=== PATIENT | female | born 2000 | race Caucasian/White ===

== ENCOUNTER 2022-05-19 17:41 | Emergency (ER) | payer OTHER, SELFPAY ==
--- NOTE | ~2022-05-19 | XR_ITS ---
EXAMINATION: XR chest 2V Exam Date/Time: 05/19/2022 18:26 MANIPULATIVE THERAPY SPECIALIST HISTORY: cough, tachycardia, chest discomfort Comparison: None available. RESULT: Lines, tubes, and devices: None. Lungs and pleura: Clear. Cardiomediastinal silhouette: Normal. Other: No acute osseous or upper abdominal finding. IMPRESSION: No acute cardiopulmonary process. Reviewed, dictated and finalized at location K. PULATIVE THERAPY SPECIALIST
--- NOTE | 2022-05-19 17:43 | ED.URI ---
HPI - URI/Sore Throat General Chief Complaint: Upper Respiratory Infection Stated Complaint: sore throat, fever, chest pain Time Seen by Provider: 05/19/22 17:43 Source: patient Mode of arrival: ambulatory Limitations: no limitations History of Present Illness HPI Narrative: Lorna is a 21-year-old female patient presenting to the clinic today with complaints of sore throat, fever, chest pain since yesterday. She reports she is also having a slight dry at times productive cough. Feels as though her lungs are heavy. States that she is having sharp chest discomfort with deep respirations. She is a current smoker. MD elicited complaint: fever, cough and other (Chest pain with inspiration) Related Data Home Medications Medication Instructions Recorded Confirmed drospirenone 3 mg-ethinyl 1 tablet PO DAILY 08/20/21 05/19/22 estradiol 0.02 mg tablet (TALI (28)) amitriptyline 10 mg tablet 20 mg PO DAILY 01/28/22 05/19/22 Allergies Allergy/AdvReac Type Severity Reaction Status Date / Time No Known Allergies Allergy Verified 05/19/22 17:52 Review of Systems Review of Systems: Pertinent positives per HPI. Patient denies any rash, headache, visual changes, dizziness, cough, shortness of breath, palpitations, nausea, vomiting, diarrhea, constipation, abdominal pain, or any urinary issues. PMFSH Past Medical History Medical History Attention Deficit Hyperactivity Disorder (ADHD) IBS (irritable bowel syndrome) Family History Family History Other Diabetes mellitus Family history of kidney disease Family history of malignant neoplasm Social History Social History Smoking status: Current every day smoker Tobacco type: e-cigarettes/vaping Alcohol intake: current Alcohol use details: socially; seldom Substance use: former Substance use type: does not use and marijuana Comments At the time of my signature, I reviewed and agree with the nursing past medical, surgical, social, and family history. There is no relevant family history pertinent to the patient complaint. Exam Narrative: General: Well-developed, well nourished, in no apparent distress Head: Normocephalic, atraumatic Eyes: Pupils equally round and reactive to light bilaterally, EOM intact, sclera and conjunctive clear, no discharge, lids normal Ears: TMs intact and clear, ear canals clear, no drainage, grossly hearing normal. Nose: Nares patent, clear nasal discharge, no inflammation, no sinus tenderness. Mouth: Oral pharynx without lesions or masses, good dentition, MMM. Oropharynx red Neck: Supple, trachea midline, mild enlargement of anterior cervical nodes, no thyroid masses or goiter palpable. Cardio:Tachycardic, regular rate and rhythm, s1 and s2 normal, no murmur appreciated. Resp: Clear to auscultation bilaterally, no rhonchi, rales, wheezing or rubs Course Course Emergency Course: Portions of this record may have been created with voice recognition software. Level of Care: Express Care Visit Vital Signs Vital signs: Vital signs reviewed MDM - URI/Sore Throat MDM Narrative Medical decision making narrative: At the time of the patient is resting comfortably on the exam table. COVID and influenza testing were negative in the clinic today. Strep culture was obtained and sent to the lab. I suspect patient has URI/pharyngitis/viral syndrome. Will send in albuterol inhaler as she is complaining of cough and having her lungs feel heavy. EKG was performed in the clinic because her heart rate was in the 130s and it was sinus tachycardia with 129 beats per minute with T-wave abnormality otherwise normal. She is a current smoker and she is on control. Discussed the risk of PE with her symptoms and expressed if symptoms worsen to go the emergenc
[2022-05-19 17:46] VITALS: BP 122/77; PULSE 133; RESP 18; TEMP 37.8; O2SAT 100
--- NOTE | 2022-05-19 18:44 | ECG_ITS ---
Measurements Intervals [place] Rate: 129 P: 48 ND: 120 QRS: 71 QRSD: 89 T: -14 QT: 334 QTc: 490 Interpretive Statements SINUS TACHYCARDIA NONSPECIFIC T-WAVE ABNORMALITY NO PREVIOUS ECG AVAILABLE FOR COMPARISON Electronically Signed On 05-20-2022 11:39:34 [employer] by Echo Charles M.D.
== END 2022-05-19 19:03 | disposition home or self-care (01) ==
PROVIDERS: Emergency Provider Nurse Practitioner Family; PCP Family Medicine
DX: B34.9 Viral infection, unspecified (principal); J06.9 Acute upper respiratory infection, unspecified; J02.9 Acute pharyngitis, unspecified; Z20.822 Contact with and (suspected) exposure to COVID-19; F17.290 Nicotine dependence, other tobacco product, uncomplicated; F90.9 Attention-deficit hyperactivity disorder, unspecified type
CPT/HCPCS: 71046; 87081; 87426; 87804; 93005; 99213; C9803; G0463

== ENCOUNTER 2022-06-07 12:12 | Emergency (ER) | payer OTHER, SELFPAY ==
[2022-06-07 13:17] VITALS: BP 137/83; PULSE 107; RESP 16; TEMP 37.4; O2SAT 100
--- NOTE | 2022-06-07 14:00 | ED.URI ---
HPI - URI/Sore Throat General Chief Complaint: Upper Respiratory Infection Stated Complaint: sore throat, swollen tonsils Time Seen by Provider: 06/07/22 14:00 History of Present Illness HPI Narrative: 21-year-old female presented for complaint of sore throat fever for 2 days. She endorses temperature up to 104 last night. Also endorses lymph node swelling. She states she had similar symptoms a few days before [place], for which she took amoxicillin. She states this was not prescribed for this infection, and she had 17 tablets to take. She states she felt better for about 1 week until symptoms developed 2 days ago. She currently denies shortness of breath, wheezing, nausea, vomiting, diarrhea. She denies known sick contacts. Related Data Home Medications Medication Instructions Recorded Confirmed drospirenone 3 mg-ethinyl 1 tablet PO DAILY 08/20/21 06/07/22 estradiol 0.02 mg tablet (TALI (28)) amitriptyline 10 mg tablet 20 mg PO DAILY 01/28/22 06/07/22 Allergies Allergy/AdvReac Type Severity Reaction Status Date / Time No Known Allergies Allergy Verified 06/07/22 13:34 Review of Systems Review of Systems: CONSTITUTIONAL: Denies body aches, fever, chills, or sweats. EYES: Denies visual changes, redness, or discharge. ENT: Denies rhinorrhea, congestion, or otalgia. CARDIOVASCULAR: Denies chest pain, palpitations, or edema. RESPIRATORY: Denies dyspnea. GASTROINTESTINAL: Denies abdominal pain, nausea, vomiting, or diarrhea. SKIN: Denies rash, itching, or wounds. MUSCULOSKELETAL: Denies back pain, joint pain, or myalgia. NEUROLOGIC: Denies headache PMFSH Past Medical History Medical History Attention Deficit Hyperactivity Disorder (ADHD) IBS (irritable bowel syndrome) Family History Family History Other Diabetes mellitus Family history of kidney disease Family history of malignant neoplasm Social History Social History Smoking status: Current every day smoker Tobacco type: e-cigarettes/vaping Alcohol intake: current Alcohol use details: socially; seldom Substance use: former Substance use type: does not use and marijuana Exam Narrative: GENERAL: Ill-appearing, no acute distress. EYES: conjunctivae clear ENT: Mucous membranes moist. TMs pearly ac with normal light reflex bilaterally; no tragal tenderness. Oropharynx erythematous. Tonsils enlarged 2+ with exudate. No drooling, no hoarseness, no trismus, uvula midline. No tripod positioning, hot potato voice, or soft palate swelling. NECK: Supple. bilateral anterior cervical lymphadenopathy CHEST: Clear to auscultation, breath sounds equal. No respiratory distress, speaks in full sentences. HEART: Regular rate and rhythm. No murmur heard. SKIN: Warm, dry, no rash. NEURO: Alert and oriented x3. Course Course Emergency Course: Patient is aware of diagnosis, understands and agrees to treatment plan. Anticipatory guidance given. Patient agrees to follow-up as directed and is aware of reasons to seek care at the emergency department. Portions of this record may have been created with voice recognition software Level of Care: Express Care Visit Vital Signs Vital signs: Vital Signs Temperature 99.3 F 06/07/22 13:17 Pulse Rate 107 H 06/07/22 13:17 Respiratory Rate 16 06/07/22 13:17 Blood Pressure 137/83 06/07/22 13:17 Pulse Oximetry 100 06/07/22 13:17 Oxygen Delivery Room Air 06/07/22 13:17 Temperature 99.3 F 06/07/22 13:17 Pulse Rate 107 H 06/07/22 13:17 Respiratory Rate 16 06/07/22 13:17 Blood Pressure 137/83 06/07/22 13:17 Pulse Oximetry 100 06/07/22 13:17 Oxygen Delivery Room Air 06/07/22 13:17 MDM - URI/Sore Throat MDM Narrative Medical decision making narrative: Due to lack of resources, unable t
== END 2022-06-07 14:13 | disposition home or self-care (01) ==
PROVIDERS: Emergency Provider Nurse Practitioner Family; PCP Family Medicine
DX: J02.9 Acute pharyngitis, unspecified (principal); F17.290 Nicotine dependence, other tobacco product, uncomplicated
CPT/HCPCS: 99213; G0463

== ENCOUNTER 2024-02-16 19:28 | Emergency (ER) | payer OTHER, SELFPAY ==
[2024-02-16 19:50] VITALS: BP 147/95; PULSE 103; RESP 16; TEMP 36.8; O2SAT 100
--- NOTE | 2024-02-16 20:21 | ED.FEMALEGU ---
HPI - Female Genitourinary General Chief complaint: Urogenital-Female Stated complaint: UTI SYMPTOMS Time Seen by Provider: 02/16/24 20:15 Source: patient, RN notes reviewed and old records reviewed Mode of arrival: ambulatory Limitations: no limitations History of Present Illness HPI Narrative: 23 year old female who presents to [facility] care with complaints of 2 days of FOUL SMELLY URINE AND TODAY NOTED BURNING URGENCY AND FREQUENCY. Patient reports that she does have some lower back pain,denies any CVA tenderness any suprapubic pressure. Patient states no concern fo STD exposure or any vaginal drainage or itching. Patient reports that she has had UTI's previously but not for past year. MD elicited complaint: UTI Pertinent past history: other (IBS, previous UTI) Onset (ago): day(s) (2) Severity: moderate Vaginal discharge: none Treatment prior to arrival: none Related Data Home Medications Medication Instructions Recorded Confirmed drospirenone 3 mg-ethinyl 1 tablet PO DAILY 08/20/21 02/16/24 estradiol 0.02 mg tablet (TALI (28)) Allergies Allergy/AdvReac Type Severity Reaction Status Date / Time No Known Allergies Allergy Verified 02/16/24 19:40 Review of Systems Review of Systems: CONSTITUTIONAL: Denies fever, chills, or sweats. CARDIOVASCULAR: Denies chest pain, palpitations, or edema. RESPIRATORY: Denies cough or dyspnea. GASTROINTESTINAL: Denies abdominal pain, nausea, vomiting, or diarrhea. GENITOURINARY: Reports dysuria, frequency, urgency. Denies flank pain or hematuria. SKIN: Denies rash or itching. MUSCULOSKELETAL: positive for some pain in lower back or myalgia. Denies CVA tenderness NEUROLOGIC: Denies headache All systems reviewed & are unremarkable except as noted in HPI and below [facility] Past Medical History Medical History Attention Deficit Hyperactivity Disorder (ADHD) IBS (irritable bowel syndrome) Family History Family History Other Diabetes mellitus Family history of kidney disease Family history of malignant neoplasm Social History Social History Smoking status: Current every day smoker Tobacco type: e-cigarettes/vaping Alcohol intake: current Alcohol use details: socially; seldom Substance use: former Substance use type: does not use and marijuana Last use: 2021 Lack of Transportation: No Lack of Food: Never True Current Housing: I Have Housing Concerned About Future Housing: No Difficulty Paying Gas/Electric Bills: No Difficulty Paying for Meds: No Currently Unemployed: No Education: Associate Degree Difficulty w/ Childcare or Family Care: No Comments At time of signature, agree with nursing past medical, surgical, social and family history. There is no relevant family history pertinent to the presenting complaint Exam Narrative: GENERAL: Well-appearing, well-nourished, and in no acute distress. HEAD: Normocephalic, atraumatic. NECK: Supple. no lymphadenopathy CHEST: Clear to auscultation. No respiratory distress.SAO2 100% on room air HEART: Regular rate and rhythm. No murmur heard. Normal peripheral pulses. ABDOMEN: Soft, nontender, nondistended, normal active bowel sounds. No CVA tenderness, dysuria, frequency and urgency with low back discomfort EXTREMITIES: Normal range of motion. No edema. SKIN: Warm, dry, no rash. NEURO: No focal deficits. Alert and oriented x3. Course Course Emergency Course: Patient is aware of diagnosis, understands and agrees to treatment plan.? Anticipatory guidance given.? Patient agrees to follow-up as directed and is aware of reasons to seek care at the emergency department. Portions of this record may have been created with voice recognition software Level of Care: Express Care Visit Vital Signs Vital signs: Vital Signs T
[2024-02-16 20:34] LABS: EDUAAPPEAR Cloudy; EDUABILI Negative (Negative); EDUABLOOD Trace (Negative); EDUACOLOR1 Light/Pale; EDUAGLUCOSE Negative (Negative); EDUAKETONE Negative (Negative); EDUALEUKO Negative (Negative); EDUANITRATE Negative (Negative); EDUAPH 6.5; EDUAPROTEIN Negative (Negative); EDUASPGRAVITY 1.025; EDUAUROBILI 0.2
== END 2024-02-16 20:36 | disposition home or self-care (01) ==
PROVIDERS: Emergency Provider Registered Nurse; PCP Family Medicine
DX: N39.0 Urinary tract infection, site not specified (principal); B96.20 Unspecified Escherichia coli [E. coli] as the cause of diseases classified elsewhere; F17.290 Nicotine dependence, other tobacco product, uncomplicated
CPT/HCPCS: 81003; 87077; 87086; 87088; 87186; 99213; G0463

== ENCOUNTER 2024-11-20 19:04 | Emergency (ER) | payer OTHER, SELFPAY ==
--- NOTE | ~2024-11-20 | XR_ITS ---
HISTORY: LT wrist pain no injury 2 weeks COMPARISON: None TECHNIQUE: 3 views of the left wrist were performed. FINDINGS: No acute fracture is identified. The carpal arcs are intact. Mild radiocarpal joint space narrowing with sclerosis of the distal radius is present. The remaining visualized joint spaces are otherwise preserved. Trace negative ulnar variance is detected. Bone mineralization is unremarkable. No significant soft tissue swelling is noted. No radiopaque foreign body is identified. IMPRESSION: Trace degenerative disease, without acute fracture or dislocation Reviewed, dictated and finalized at location A.
--- NOTE | 2024-11-20 19:12 | ED.LOWEXIN ---
HPI - Extremity Injury (Lower) General Chief Complaint: Extremity Injury, Lower Stated Complaint: Left Wrist Pain Source: patient and RN notes reviewed Mode of arrival: ambulatory Limitations: no limitations History of Present Illness HPI Narrative: Patient is a 24-year-old female who presents to the [facility] with complaints of left wrist pain. Patient states that she has had left wrist pain for the past couple weeks. However, the pain has worsened in severity over the last couple days. She states that she has an exacerbation of the pain when she applies pressure to the left hand. She has full range of motion of her left hand and wrist. She is neurovascularly intact. There is no obvious swelling or deformity. Sensation is intact. Patient states that she notices the pain when she has to type for her job. She states that she frequently does type and repeat motions at work. Patient states that she noticed a divot at the base of her wrist, so she was concerned for dislocation. Related Data Home Medications ?Medication ?Instructions ?Recorded ?Confirmed ?Last Taken ?Type drospirenone 3 mg-ethinyl 1 tablet PO DAILY 08/20/21 11/20/24 Unknown History estradiol 0.02 mg tablet (TALI (28)) Allergies Allergy/AdvReac Type Severity Reaction Status Date / Time No Known Allergies Allergy Verified 11/20/24 19:25 Review of Systems Review of Systems: CONSTITUTIONAL: Denies fever, chills, or sweats. EYES: Denies visual changes, redness, or discharge. ENT: Denies otalgia and sore throat CARDIOVASCULAR: Denies chest pain, palpitations, or edema. RESPIRATORY: Denies cough or dyspnea. GASTROINTESTINAL: Denies abdominal pain, nausea, vomiting, or diarrhea. GENITOURINARY: Denies dysuria or hematuria. SKIN: Denies rash or itching. MUSCULOSKELETAL: Reports left wrist pain. NEUROLOGIC: Denies headache, numbness, or weakness. Pertinent positives per HPI. [facility] Past Medical History Medical History IBS (irritable bowel syndrome) Attention Deficit Hyperactivity Disorder (ADHD) Family History Family History Other Diabetes mellitus Family history of kidney disease Family history of malignant neoplasm Social History Social History Smoking status: Current every day smoker Tobacco type: e-cigarettes/vaping Alcohol intake: current Alcohol use details: socially; seldom Substance use: former Substance use type: does not use and marijuana Last use: 2021 Lack of Transportation: No Lack of Food: Never True Current Housing: I Have Housing Concerned About Future Housing: No Difficulty Paying Gas/Electric Bills: No Difficulty Paying for Meds: No Currently Unemployed: No Education: Associate Degree Difficulty w/ Childcare or Family Care: No Comments At the time of my signature, I reviewed and agree with the nursing past medical, surgical, social, and family history. There is no relevant family history pertinent to the patient complaint. Exam Narrative: GENERAL: This is a well-nourished, well-developed patient, in no apparent distress. HEAD: normocephalic, atraumatic. EYES: Sclera clear/white. Vision is grossly intact. EARS: External ears normal. Hearing grossly intact. NOSE: External nose normal with no obvious nasal discharge, nares without redness, no rhinorrhea. THROAT: Mucous membranes moist, posterior pharynx clear. NECK: Neck supple, non-tender without lymphadenopathy, masses or thyromegaly. CARDIOVASCULAR: Regular rate and rhythm without murmurs, gallops, or rubs. RESPIRATORY: Clear to auscultation. Breath sounds equal bilaterally. No wheezes, rales, or rhonchi. GASTROINTESTINAL: Abdomen soft, non-tender, nondistended. Bowel sounds are active. No hepato-splenomegaly, or palpable masses. No guarding. SKIN: warm, intact with no suspicious lesions or rash, good texture and turgor. NEURO: awake, alert, and oriented to person, place and time. There were no obvious focal neurologic abnormalities. EXTREMITIES: The L wrist is with obvious asymmetry or deformity when compared to the R wrist. NO surface trauma, open wounds, swelling or obvious deformity. No overlying erythema or warmth. No bony crepitus or focal area of tender to palpate.Normal flexion/extension, ulnar/radial deviation. Motor/sensory function of ulnar, radial, median nerves intact. Ulnar and radial pulses intact Course Course Level of Care: Express Care Visit Vital Signs Vital signs: Vital Signs Temperature 99.2 F 11/20/24 19:13 Pulse Rate 91 11/20/24 19:13 Respiratory Rate 16 11/20/24 19:13 Blood Pressure 130/91 H 11/20/24 19:13 Pulse Oximetry 99 11/20/24 19:13 Oxygen Delivery Room Air 11/20/24 19:13 Temperature 99.2 F 11/20/24 19:13 Pulse Rate 91 11/20/24 19:13 Respiratory Rate 16 11/20/24 19:13 Blood Pressure 130/91 H 11/20/24 19:13 Pulse Oximetry 99 11/20/24 19:13 Oxygen Delivery Room Air 11/20/24 19:13 Reviewed MDM - Extremity Injury (Lower) MDM Narrative Medical decision making narrative: Use the RICE method at home. May take ibuprofen and/or Tylenol if needed. If symptoms persist in 1 week after conservative treatment, follow-up with specialist. Differential Diagnosis Differential diagnosis: Likely other (wrist fracture, hand fracture, radial fracture, ulnar fracture, wrist sprain) Imaging Data Attestation: I personally reviewed and interpreted this imaging study as follows: Radiologist's impression: X-ray interpreted by me. No acute osseous abnormality. Critical Care Time Critical Care Time Critical Care Time: No Discharge Plan Discharge Clinical Impression: Left wrist sprain Qualifiers: Encounter type: initial encounter Wrist sprain location: unspecified location Qualified Code(s): S63.502A - Unspecified sprain of left wrist, initial encounter Patient Disposition: Home Condition: Stable Instructions: Wrist Sprain (ED), P.R.I.C.E. Treatment (ED) Additional Instructions: Use the RICE method at home. If symptoms persist in 1 week after conservative treatment, follow-up with specialist. Patient Language: Upper Sorbian Prescriptions: New naproxen 500 mg tablet 500 mg PO BID PRN (Reason: pain) Qty: 20 0RF No Action drospirenone-ethinyl estradiol [TALI (28)] 3-0.02 mg tablet 1 tablet PO DAILY Follow-up/Referrals: PHYSICIAN,SOCIAL WORK ASSOCIATE [Primary Care Provider] - Stand Alone Forms: Work/School Release IP Time of Disposition: 20:03
[2024-11-20 19:13] VITALS: BP 130/91; PULSE 91; RESP 16; TEMP 37.3; O2SAT 99
== END 2024-11-20 20:10 | disposition home or self-care (01) ==
PROVIDERS: Emergency Provider Nurse Practitioner
DX: S63.502A Unspecified sprain of left wrist, initial encounter (principal); X58.XXXA Exposure to other specified factors, initial encounter
CPT/HCPCS: 73110; 99213; G0463

== ENCOUNTER 2025-01-29 18:36 | Emergency (ER) | payer OTHER, SELFPAY ==
--- NOTE | 2025-01-29 18:38 | ED.FEMALEGU ---
HPI - Female Genitourinary General Chief complaint: Urogenital-Female Stated complaint: Uti Symptoms Time Seen by Provider: 01/29/25 18:50 Source: patient Mode of arrival: ambulatory Limitations: no limitations History of Present Illness HPI Narrative: Lorna is a 24-year-old female patient presenting to the clinic today with complaints of burning, frequency, and urgency with urination as well as some lower back pain times 2-3 days. Took some azo last night for her symptoms. She denies any nausea vomiting flank pain or abdominal pain. No fevers, chills, body aches. Related Data Home Medications ?Medication ?Instructions ?Recorded ?Confirmed ?Last Taken ?Type drospirenone 3 mg-ethinyl 1 tablet PO DAILY 08/20/21 11/20/24 Unknown History estradiol 0.02 mg tablet (TALI (28)) Allergies Allergy/AdvReac Type Severity Reaction Status Date / Time No Known Allergies Allergy Verified 01/29/25 18:42 Review of Systems Review of Systems: Pertinent positives per HPI. Patient denies any fever, chills, rash, headache, visual changes, dizziness, cough, runny nose, sore throat, shortness of breath, chest pain, palpitations, nausea, vomiting, diarrhea, constipation, abdominal pain PMFSH Past Medical History Medical History IBS (irritable bowel syndrome) Attention Deficit Hyperactivity Disorder (ADHD) Family History Family History Other Diabetes mellitus Family history of kidney disease Family history of malignant neoplasm Social History Social History Smoking status: Current every day smoker Tobacco type: e-cigarettes/vaping Alcohol intake: current Alcohol use details: socially; seldom Substance use: former Substance use type: does not use and marijuana Last use: 2021 Lack of Transportation: No Lack of Food: Never True Current Housing: I Have Housing Concerned About Future Housing: No Difficulty Paying Gas/Electric Bills: No Difficulty Paying for Meds: No Currently Unemployed: No Education: Associate Degree Difficulty w/ Childcare or Family Care: No Comments At the time of my signature, I reviewed and agree with the nursing past medical, surgical, social, and family history. There is no relevant family history pertinent to the patient complaint. Exam Narrative: General: Well-developed, well nourished, in no apparent distress. Head: Normocephalic, atraumatic. Cardio: Regular rate and rhythm, s1 and s2 normal, no murmur appreciated. Resp: Clear to auscultation bilaterally, no rhonchi, rales, wheezing or rubs. Abdomen: Soft, pliable, bowel sounds present in all quadrants, non-tender to palpation, no organomegly, no CVAT tenderness. Course Course Emergency Course: Portions of this record may have been created with voice recognition software. Level of Care: Express Care Visit Vital Signs Vital signs: Vital Signs Temperature 36.7 C 01/29/25 18:42 Pulse Rate 102 H 01/29/25 18:42 Respiratory Rate 16 01/29/25 18:42 Blood Pressure 124/78 01/29/25 18:42 Pulse Oximetry 100 01/29/25 18:42 Temperature 36.7 C 01/29/25 18:42 Pulse Rate 102 H 01/29/25 18:42 Respiratory Rate 16 01/29/25 18:42 Blood Pressure 124/78 01/29/25 18:42 Pulse Oximetry 100 01/29/25 18:42 Vital signs reviewed MDM - Female Genitourinary MDM Narrative Medical decision making narrative: At the time of visit patient is resting comfortably on the exam table. Patient appears to be nontoxic. Complaints of burning, frequency, and urgency with urination as well as some lower back pain times 2-3 days. Took some azo last night for her symptoms. She denies any nausea vomiting flank pain or abdominal pain. No fevers, chills, body aches. UA dip ordered. Labs: Urine dip positive for nitrates. Plan: Patient is having UTI symptoms-urinalysis shows positive nitrate. Will place on Macrobid. Supportive measures were discussed with the patient and they voiced understanding discharge instructions and agrees to treatment plan. Return precautions reviewed Lab Data Labs: Lab Results 01/29/25 Range/Units 18:48 POC Urine Color Yellow POC Urine Clarity Clear POC Urine pH 5.5 POC Ur Specif [place] 1.025 POC Urine Protein Negative (Negative) POC Ur Glucose (UA) Negative (Negative) POC Urine Ketones Negative (Negative) POC Urine Blood Negative (Negative) POC Urine Nitrite Positive (Negative) POC Urine Bilirubin Negative (Negative) POC Urine Urobilinogen 1.0 POC U Leukocyte Esteras Negative (Negative) Discharge Plan Discharge Clinical Impression: Symptoms of urinary tract infection Patient Disposition: Home Condition: Stable Instructions: Antibiotic Form, Urinary Tract Infection in Women (ED) Additional Instructions: Urine positive for nitrates. We will send urine for culture Take Macrobid as prescribed Increase fluids and stay well hydrated Wipe front to back. May use wet wipes. Avoid tub baths If sexually active- pee before and after intercourse. Wear cotton panties Avoid tight clothing up against the genitals Follow up with your PCP in 1 week if symptoms persist. Patient Language: Hungarian Prescriptions: New nitrofurantoin monohyd/m-cryst [Macrobid] 100 mg capsule 100 mg PO Q12H 5 Days Qty: 10 0RF Rx Instructions: must administer with a meal/food No Action drospirenone-ethinyl estradiol [TALI (28)] 3-0.02 mg tablet 1 tablet PO DAILY Follow-up/Referrals: PHYSICIAN,COMMUNITY RESOURCE OFFICER [Primary Care Provider, Internal Medicine] Time of Disposition: 18:54 Quality NIHSS Nursing Documentation ED NIHSS nursing documentation: reviewed/agree
[2025-01-29 18:42] VITALS: BP 124/78; PULSE 102; RESP 16; TEMP 36.7; O2SAT 100
[2025-01-29 18:50] LABS: EDUAAPPEAR Clear; EDUABILI Negative (Negative); EDUABLOOD Negative (Negative); EDUACOLOR1 Yellow; EDUAGLUCOSE Negative (Negative); EDUAKETONE Negative (Negative); EDUALEUKO Negative (Negative); EDUANITRATE Positive (Negative); EDUAPH 5.5; EDUAPROTEIN Negative (Negative); EDUASPGRAVITY 1.025; EDUAUROBILI 1.0
== END 2025-01-29 18:56 | disposition home or self-care (01) ==
PROVIDERS: Emergency Provider Nurse Practitioner Family
DX: R82.90 Unspecified abnormal findings in urine (principal); F90.9 Attention-deficit hyperactivity disorder, unspecified type; K58.9 Irritable bowel syndrome, unspecified
CPT/HCPCS: 81003; 87086; 99213; G0463